=== PATIENT | female | born 1935 | race Caucasian/White ===

== ENCOUNTER 2016-10-01 23:34 | Inpatient (IN) | payer MEDICARE, BC ==
[~2016-10-01] VITALS: Ht 157.5 cm; Wt 52.7 kg
[~2016-10-01 23:34] MED LIST: ASPIRIN LOW DOS81 M2 PO; CEPHALEXIN500 MG PO; CLINDAMYCIN150 MG OR; DITROPAN5 MG/TA1 OR; DYAZIDE1 CAP OR; FELODIPINE10 MG OR; GLIPIZIDE ER2.5 MG PO; HYDROCO/APAP1 T11 PO; LOPRESSOR25 MG PO; LORTAB 10-325 M1 TAB PO; MAXZIDE-2537.5 MG/TA PO; MECLIZINE12.5 MG PO; PERIDEX0.12 % MT; PLAVIX75 MG OR; PLAVIX75 MG PO; SM ASPIRIN81 M1 OR; TRAMADOL HCL50 MG OR; TRAMADOL HCL50 MG PO; ULTRAM50 M1 OR; ULTRAM50 MG PO; VALTREX1 GM OR; ZANTAC 150 PO; ZANTAC150 MG OR
[2016-10-02] MEDS ORDERED: MS CONTIN ER15 MG PO (00:30)
[2016-10-02] MEDS ORDERED: NEURONTIN100 MG PO (00:36)
[2016-10-02] MEDS ORDERED: POTASSIUM CHLO10 MEQ PO (00:40)
[2016-10-02] MEDS ORDERED: OXYCODONE HCL E PO (00:44)
[2016-10-02 00:53] LABS: HEMATOCRIT 26.5 % (37.0-47.0); HEMOGLOBIN 8.2 g/dl (12.0-16.0); IMMATURE GRANULOCYTES 0.5 % (0.0-1.0); MEAN CORPUSCULAR HGB 29.7 pG CALC (26.0-32.0); MEAN CORPUSCULAR HGB CONC 30.9 g/L CALC (32.0-36.0); NEUT# 8.32 thou/uL (2.00-7.15); RED BLOOD COUNT 2.76 mill/uL (4.20-5.60)
[2016-10-02 00:59] LABS: ALBUMIN 2.9 g/dL (3.2-5.0); ALKALINE PHOSPHATASE 48 u/l (38-126); ANION GAP 16 (6-22 (CALC)); BILIRUBIN, TOTAL 0.5 mg/dL (0.0-1.4); BUN 26 mg/dL (8-23); BUN/CREATININE RATIO 42 (12-20 (CALC)); CALCIUM 7.8 mg/dL (8.4-10.2); CARBON DIOXIDE 18 mmol/l (22-30); CHLORIDE 110 mmol/l (95-108); CREATININE 0.6 mg/dL (0.5-1.0); GFR > 60 ML/MIN (>=60 (CALC)); GFR FOR AFR.AMER. > 60 ML/MIN (>=60 (CALC)); GLUCOSE 144 mg/dL (82-115); POTASSIUM 2.8 mmol/l (3.5-5.1); SGOT/AST 20 u/l (9-36); SGPT/ALT 26 u/l (11-66); SODIUM 140 mmol/l (137-146); TOTAL PROTEIN 5.5 g/dL (6.3-8.2)
[2016-10-02 01:05] LABS: URINE BILIRUBIN - DIPSTICK NEGATIVE (NEGATIVE); URINE BLOOD DIPSTICK MODERATE (NEGATIVE); URINE CLARITY CLOUDY; URINE COLOR YELLOW; URINE GLUCOSE - DIPSTICK NEGATIVE (NEGATIVE); URINE KETONE TRACE mg/dL (NEGATIVE); URINE PROTEIN - DIPSTICK 100 mg/dL (NEG-TRACE); URINE UROBILINOGEN - DIPSTICK 0.2 E.U./dL (0.2)
[2016-10-02 01:10] LABS: URINE LEUK ESTERASE MODERATE (NEGATIVE); URINE NITRITE - DIPSTICK POSITIVE (Negative)
[2016-10-02 01:12] LABS: URINE BACTERIA FEW hpf; URINE WBC TNTC WBC/hpf (0-5)
[2016-10-02 06:25] VITALS: BP 121/34
[2016-10-02 12:41] VITALS: BP 119/60
[2016-10-02 16:02] VITALS: BP 117/51
[2016-10-02 19:00] VITALS: BP 100/76
[2016-10-02 23:35] VITALS: BP 111/69
[2016-10-03 03:20] VITALS: BP 112/64
[2016-10-03 06:15] LABS: HEMATOCRIT 30.8 % (37.0-47.0); HEMOGLOBIN 9.7 g/dl (12.0-16.0); IMMATURE GRANULOCYTES 0.5 % (0.0-1.0); MEAN CELL VOLUME 96.6 fL CALC (80.0-100.0); MEAN CORPUSCULAR HGB 30.4 pG CALC (26.0-32.0); MEAN CORPUSCULAR HGB CONC 31.5 g/L CALC (32.0-36.0); NEUT# 5.92 thou/uL (2.00-7.15); RED BLOOD COUNT 3.19 mill/uL (4.20-5.60); RED CELL DISTRI WIDTH 13.9 % (11.5-15.5)
[2016-10-03 06:37] LABS: ANION GAP 14 (6-22 (CALC)); BUN 19 mg/dL (8-23); BUN/CREATININE RATIO 28 (12-20 (CALC)); CALCIUM 9.3 mg/dL (8.4-10.2); CARBON DIOXIDE 25 mmol/l (22-30); CHLORIDE 108 mmol/l (95-108); CREATININE 0.7 mg/dL (0.5-1.0); GFR > 60 ML/MIN (>=60 (CALC)); GFR FOR AFR.AMER. > 60 ML/MIN (>=60 (CALC)); GLUCOSE 86 mg/dL (82-115); MAGNESIUM 2.2 mg/dL (1.6-2.3); POTASSIUM 4.1 mmol/l (3.5-5.1); SODIUM 142 mmol/l (137-146)
[2016-10-03 07:25] VITALS: BP 127/53
[2016-10-03 17:00] VITALS: BP 119/49
[2016-10-03 19:50] VITALS: BP 122/63
[2016-10-04 00:35] VITALS: BP 128/61
[2016-10-04 05:00] VITALS: BP 126/72
[2016-10-04 08:45] VITALS: BP 109/52
[2016-10-04 17:00] VITALS: BP 118/62
[2016-10-04 19:50] VITALS: BP 135/50
[2016-10-04 23:29] VITALS: BP 140/68
[2016-10-05 04:41] VITALS: BP 142/43
[2016-10-05 05:58] LABS: HEMOGLOBIN 10.1 g/dl (12.0-16.0); IMMATURE GRANULOCYTES 0.9 % (0.0-1.0); MEAN CELL VOLUME 94.4 fL CALC (80.0-100.0); MEAN CORPUSCULAR HGB 29.8 pG CALC (26.0-32.0); MEAN CORPUSCULAR HGB CONC 31.6 g/L CALC (32.0-36.0); NEUT# 3.53 thou/uL (2.00-7.15); RED BLOOD COUNT 3.39 mill/uL (4.20-5.60); RED CELL DISTRI WIDTH 13.7 % (11.5-15.5)
[2016-10-05 06:18] LABS: ANION GAP 11 (6-22 (CALC)); BUN 14 mg/dL (8-23); BUN/CREATININE RATIO 22 (12-20 (CALC)); CARBON DIOXIDE 26 mmol/l (22-30); CHLORIDE 105 mmol/l (95-108); CREATININE 0.6 mg/dL (0.5-1.0); GFR > 60 ML/MIN (>=60 (CALC)); GFR FOR AFR.AMER. > 60 ML/MIN (>=60 (CALC)); GLUCOSE 102 mg/dL (82-115); MAGNESIUM 1.6 mg/dL (1.6-2.3); POTASSIUM 3.8 mmol/l (3.5-5.1); SODIUM 138 mmol/l (137-146)
[2016-10-05 09:22] VITALS: BP 120/42
[2016-10-05] MEDS ORDERED: DOXYCYCL HYC100 MG PO (12:56)
[2016-10-05] MEDS ORDERED: OXYCODONE10 M1 PO (12:57)
[2016-10-05] MEDS ORDERED: MS CONTIN ER15 MG PO (12:57)
== END 2016-10-05 14:38 | DRG 690 ==
LOC: ENPENDDIS → ED 23:34 → ED-I 10-02 05:15 → ED 10-02 05:36 → MS2 10-02 05:37
PROVIDERS: Emergency Medicine; ADMIT Internal Medicine; ATTEND Internal Medicine
DX: N39.0 Urinary tract infection, site not specified (principal); E87.2 Acidosis; C85.98 Non-Hodgkin lymphoma, unspecified, lymph nodes of multiple sites; E83.42 Hypomagnesemia; F03.90 Unspecified dementia, unspecified severity, without behavioral disturbance, psychotic disturbance, mood disturbance, and anxiety; B95.7 Other staphylococcus as the cause of diseases classified elsewhere; E87.6 Hypokalemia; I25.10 Atherosclerotic heart disease of native coronary artery without angina pectoris; R41.82 Altered mental status, unspecified; I10 Essential (primary) hypertension; E11.9 Type 2 diabetes mellitus without complications; G89.3 Neoplasm related pain (acute) (chronic); Z95.5 Presence of coronary angioplasty implant and graft; Z92.21 Personal history of antineoplastic chemotherapy; Z91.81 History of falling
CPT/HCPCS: J1956

== ENCOUNTER 2016-11-28 12:28 | Inpatient (IN) | payer MEDICARE, BC ==
[~2016-11-28] VITALS: Ht 157.5 cm; Wt 52.5 kg
[~2016-11-28 12:28] MED LIST changes: +DOXYCYCL HYC100 MG PO; -FELODIPINE10 MG OR; +FELODIPINE10 MG PO; +MS CONTIN ER15 MG PO; +NEURONTIN100 MG PO; +OXYCODONE HCL E PO; +OXYCODONE10 M1 PO; +POTASSIUM CHLO10 MEQ PO
[2016-11-28] MEDS ORDERED: XARELTO10 MG PO (12:49)
[2016-11-28] MEDS ORDERED: LASIX 40 MG40 MG/TAB PO (12:49)
[2016-11-28 13:23] LABS: HEMOGLOBIN 10.6 g/dl (12.0-16.0); IMMATURE GRANULOCYTES 0.4 % (0.0-1.0); MEAN CELL VOLUME 95.1 fL CALC (80.0-100.0); MEAN CORPUSCULAR HGB 30.5 pG CALC (26.0-32.0); MEAN CORPUSCULAR HGB CONC 32.1 g/L CALC (32.0-36.0); NEUT# 4.81 thou/uL (2.00-7.15); RED BLOOD COUNT 3.47 mill/uL (4.20-5.60)
[2016-11-28 13:34] LABS: ALBUMIN 4.3 g/dL (3.2-5.0); ALKALINE PHOSPHATASE 69 u/l (38-126); ANION GAP 15 (6-22 (CALC)); BILIRUBIN, TOTAL 0.5 mg/dL (0.0-1.4); BUN 24 mg/dL (8-23); BUN/CREATININE RATIO 32 (12-20 (CALC)); CALCIUM 11.4 mg/dL (8.4-10.2); CARBON DIOXIDE 32 mmol/l (22-30); CHLORIDE 98 mmol/l (95-108); CREATININE 0.7 mg/dL (0.5-1.0); ETHYL ALCOHOL 0 mg/dl (0-30); GFR > 60 ML/MIN (>=60 (CALC)); GFR FOR AFR.AMER. > 60 ML/MIN (>=60 (CALC)); GLUCOSE 160 mg/dL (82-115); POTASSIUM 4.1 mmol/l (3.5-5.1); SGOT/AST 27 u/l (9-36); SGPT/ALT 27 u/l (11-66); SODIUM 141 mmol/l (137-146)
[2016-11-28 13:46] LABS: MYOGLOBIN 44 ng/mL (0 - 62)
[2016-11-28 14:19] LABS: URINE BILIRUBIN - DIPSTICK NEGATIVE (NEGATIVE); URINE BLOOD DIPSTICK MODERATE (NEGATIVE); URINE COLOR YELLOW; URINE GLUCOSE - DIPSTICK NEGATIVE (NEGATIVE); URINE KETONE NEGATIVE (NEGATIVE); URINE NITRITE - DIPSTICK NEGATIVE (Negative); URINE PH 6.5 (4.5-8.0); URINE PROTEIN - DIPSTICK TRACE mg/dL (NEG-TRACE); URINE UROBILINOGEN - DIPSTICK 0.2 E.U./dL (0.2)
[2016-11-28 14:21] LABS: URINE CLARITY SLIGHT CLOUDY; URINE LEUK ESTERASE LARGE (NEGATIVE)
[2016-11-28 14:22] LABS: URINE SQUAMOUS EPITHELIAL CELL FEW EPI/hpf (0-FEW); URINE WBC 20-50 WBC/hpf (0-5)
[2016-11-28 14:23] LABS: BARBITURATES NEGATIVE (NEGATIVE); COCAINE NEGATIVE (NEGATIVE); METHADONE NEGATIVE (NEGATIVE); OXCYCODONE POSITIVE (NEGATIVE); TETRAHYDROCANNABIONOL NEGATIVE (NEGATIVE); TRICYLIC ANTIDEPRESSANTS NEGATIVE (NEGATIVE)
[2016-11-28 19:20] VITALS: BP 141/65
[2016-11-29 00:25] VITALS: BP 144/66
[2016-11-29 05:10] VITALS: BP 125/79
[2016-11-29 06:11] LABS: HEMATOCRIT 33.3 % (37.0-47.0); HEMOGLOBIN 10.7 g/dl (12.0-16.0); IMMATURE GRANULOCYTES 0.3 % (0.0-1.0); MEAN CELL VOLUME 94.3 fL CALC (80.0-100.0); MEAN CORPUSCULAR HGB 30.3 pG CALC (26.0-32.0); MEAN CORPUSCULAR HGB CONC 32.1 g/L CALC (32.0-36.0); NEUT# 4.93 thou/uL (2.00-7.15); RED BLOOD COUNT 3.53 mill/uL (4.20-5.60); RED CELL DISTRI WIDTH 13.9 % (11.5-15.5)
[2016-11-29 06:26] LABS: ANION GAP 16 (6-22 (CALC)); BUN 22 mg/dL (8-23); BUN/CREATININE RATIO 31 (12-20 (CALC)); CALCIUM 11.2 mg/dL (8.4-10.2); CARBON DIOXIDE 30 mmol/l (22-30); CHLORIDE 100 mmol/l (95-108); CREATININE 0.7 mg/dL (0.5-1.0); GFR > 60 ML/MIN (>=60 (CALC)); GFR FOR AFR.AMER. > 60 ML/MIN (>=60 (CALC)); GLUCOSE 127 mg/dL (82-115); POTASSIUM 3.7 mmol/l (3.5-5.1); SODIUM 142 mmol/l (137-146)
[2016-11-29 08:45] VITALS: BP 160/60
[2016-11-29 12:56] VITALS: BP 166/56
[2016-11-29 16:23] VITALS: BP 149/65
[2016-11-29 21:00] VITALS: BP 118/53
[2016-11-30 00:25] VITALS: BP 152/58
[2016-11-30 01:25] LABS: URINE BILIRUBIN - DIPSTICK NEGATIVE (NEGATIVE); URINE BLOOD DIPSTICK NEGATIVE (NEGATIVE); URINE CLARITY SLIGHT CLOUDY; URINE COLOR YELLOW; URINE GLUCOSE - DIPSTICK NEGATIVE (NEGATIVE); URINE KETONE NEGATIVE (NEGATIVE); URINE LEUK ESTERASE NEGATIVE (Negative); URINE NITRITE - DIPSTICK NEGATIVE (Negative); URINE PROTEIN - DIPSTICK NEGATIVE (NEG-TRACE); URINE UROBILINOGEN - DIPSTICK 0.2 E.U./dL (0.2)
[2016-11-30 04:25] VITALS: BP 129/53
[2016-11-30 11:56] VITALS: BP 128/60
[2016-11-30] MEDS ORDERED: MILK OF MAG30 ML/UDC PO (12:36)
[2016-11-30] MEDS ORDERED: TYLENOL325 MG PO (12:38)
[2016-11-30 16:08] VITALS: BP 97/55
[2016-11-30 19:05] VITALS: BP 90/50
[2016-11-30 23:37] VITALS: BP 91/51
[2016-12-01 03:10] VITALS: BP 103/50
[2016-12-01 07:59] VITALS: BP 143/57
[2016-12-01 12:44] VITALS: BP 102/54
[2016-12-01 16:00] VITALS: BP 112/46
[2016-12-01 19:30] VITALS: BP 98/54
[2016-12-02 00:34] VITALS: BP 130/52
[2016-12-02 04:22] VITALS: BP 137/51
[2016-12-02 07:14] LABS: HEMATOCRIT 31.1 % (37.0-47.0); IMMATURE GRANULOCYTES 0.2 % (0.0-1.0); MEAN CELL VOLUME 94.8 fL CALC (80.0-100.0); MEAN CORPUSCULAR HGB 30.5 pG CALC (26.0-32.0); MEAN CORPUSCULAR HGB CONC 32.2 g/L CALC (32.0-36.0); NEUT# 4.06 thou/uL (2.00-7.15); RED BLOOD COUNT 3.28 mill/uL (4.20-5.60); RED CELL DISTRI WIDTH 13.9 % (11.5-15.5)
[2016-12-02 07:24] LABS: ANION GAP 13 (6-22 (CALC)); BUN 18 mg/dL (8-23); BUN/CREATININE RATIO 23 (12-20 (CALC)); CARBON DIOXIDE 32 mmol/l (22-30); CHLORIDE 98 mmol/l (95-108); CREATININE 0.8 mg/dL (0.5-1.0); GFR > 60 ML/MIN (>=60 (CALC)); GFR FOR AFR.AMER. > 60 ML/MIN (>=60 (CALC)); GLUCOSE 106 mg/dL (82-115); POTASSIUM 3.3 mmol/l (3.5-5.1); SODIUM 139 mmol/l (137-146)
[2016-12-02 11:18] VITALS: BP 112/57
[2016-12-02] MEDS ORDERED: MS CONTIN ER15 MG PO (12:52)
[2016-12-02] MEDS ORDERED: OXYCODONE10 M1 PO (12:52)
[2016-12-02 14:27] VITALS: BP 100/66
== END 2016-12-02 16:43 | disposition home health service (06) | DRG 690 ==
LOC: ENPENDDIS → ED 12:28 → ED-I 16:07 → ED 16:30 → MS2 16:31
PROVIDERS: Emergency Medicine; ADMIT Internal Medicine; ATTEND Internal Medicine
DX: N39.0 Urinary tract infection, site not specified (principal); C85.99 Non-Hodgkin lymphoma, unspecified, extranodal and solid organ sites; F03.90 Unspecified dementia, unspecified severity, without behavioral disturbance, psychotic disturbance, mood disturbance, and anxiety; I10 Essential (primary) hypertension; E11.9 Type 2 diabetes mellitus without complications; B95.7 Other staphylococcus as the cause of diseases classified elsewhere; G89.3 Neoplasm related pain (acute) (chronic); I25.10 Atherosclerotic heart disease of native coronary artery without angina pectoris; R32 Unspecified urinary incontinence; Z79.02 Long term (current) use of antithrombotics/antiplatelets; Z79.01 Long term (current) use of anticoagulants; Z79.82 Long term (current) use of aspirin; Z91.81 History of falling; Z86.718 Personal history of other venous thrombosis and embolism; Z95.5 Presence of coronary angioplasty implant and graft
CPT/HCPCS: J3370